=== PATIENT | female | born 1990 | race Caucasian/White ===

== ENCOUNTER → 2018-10-09 11:14 | Outpatient (CLI) | payer MEDICAID ==
[~2018-10-09] VITALS: Ht 160 cm; Wt 81.8 kg
[~2018-10-09 11:14] MED LIST: DEMEROL50 MG PO; IBUPROFEN600 MG PO; PERCOCET 5/3251 TA1 PO; PRENATAL-DHA P1 EACH; TRINATAL GT TA1 EACH
[2018-10-09 11:20] VITALS: BP 114/63; Ht 160 cm; Wt 81.8 kg
== END | disposition home or self-care (01) ==
LOC: D.LDO 11:14 → D.ER 11:14 → EDSTATUS 14:54 → D.LDO 14:54
PROVIDERS: ATTEND Obstetrics & Gynecology
DX: O26.899 Other specified pregnancy related conditions, unspecified trimester (principal); Z3A.00 Weeks of gestation of pregnancy not specified

== ENCOUNTER 2018-12-06 04:58 | Inpatient (IN) | payer OTHER ==
[~2018-12-06] VITALS: Ht 160 cm; Wt 89.8 kg
[2018-12-06] MEDS ORDERED: PROTONIX40 MG PO (05:13)
[2018-12-06 05:15] VITALS: BP 124/62; Ht 160 cm; Wt 89.8 kg
[2018-12-06 05:47] LABS: HEMATOCRIT 30.9 % (36.0-48.0); HEMOGLOBIN 10.2 g/dL (12-16); MCH 26.3 pg (26.0-34.0); MCV 79.6 fL (80.0-100.0); MEAN PLATELET VOLUME 10.4 fL (7.4-10.4); RBC 3.88 10x6/uL (4.00-5.40); RDW 14.9 % (11.5-14.5); WBC 8.5 10x3/uL (4.8-10.8)
[2018-12-06 08:14] LABS: APPEARANCE HAZY (CLEAR); BILIRUBIN NEGATIVE (NEGATIVE); COLOR YELLOW (YELLOW); GLUCOSE NEGATIVE (NEGATIVE); KETONE NEGATIVE (NEGATIVE); NITRITE NEGATIVE (NEGATIVE); PROTEIN NEGATIVE (NEGATIVE); SPECIFIC GRAVITY 1.015 (1.005-1.020)
[2018-12-06 08:16] LABS: BACTERIA MANY /hpf (NONE SEEN); EPITHELIAL CELLS 0-5 /hpf (0-5); MUCUS <1+ /lpf (NONE SEEN)
--- NOTE | 2018-12-06 21:28 | NUR ---
AMBULATORY TO ROOM 1274 FOR CONTINUED PP CARE. STEADY GAIT NOTED. VSS. FUNDUS FIRM, MIDLINE AND U2 WITH SCANT RUBRA LOCHIA NO CLOTS NOTED. ORIENTED TO ROOM AND CALL LIGHT USE, VERBALIZES UNDERSTANDING. SHIFT ASSESSMENT PER FLOWSHEET DONE. EDUCATED ON IMPORTANCE OF EMPTYING BLADDER AT LEAST Q 2-3 HOURS, VERBALIZES UNDERSTANDING. ICE WATER PROVIDED. LINENS PROVIDED TO PT'S MOTHER. DENIES ADDITIONAL NEEDS. BED IN LOW POSITION WITH UPPER SIDE RAILS RAISED X2. CALL LIGHT AND PHONE WITHIN REACH. WILL CONTINUE TO MONITOR. INFANT IN OPEN CRIB AT BEDSIDE.
[2018-12-06 21:30] VITALS: BP 110/66
--- NOTE | 2018-12-06 22:25 | NUR ---
PAIN REASSESSMENT COMPLETED. -08/11. DENIES NEED FOR INTERVENTION. BED IN LOW POSITION WITH UPPER SIDE RAILS RAISED X2. CALL LIGHT AND PHONE WITHIN REACH. WILL CONTINUE TO MONITOR AND ASSIST PRN.
--- NOTE | 2018-12-06 23:57 | NUR ---
PT RESTING QUIETLY WITH EYES CLOSED IN SEMI-FOWLERS POSITION. RESPIRATIONS REGULAR AND UNLABORED WITH NO S/S OF DISTRESS NOTED. RESTING QUIETLY IN OPEN CRIB AT BEDSIDE. BED IN LOW POSITION WITH UPPER SIDE RAILS RAISED X2. CALL LIGHT AND PHONE WITHIN REACH. WILL CONTINUE TO MONITOR AND ASSIST PRN.
--- NOTE | 2018-12-07 01:57 | NUR ---
C/O ABD CRAMPING 12/11. PERCOCET AND MOTRIN GIVEN PER PT REQUEST AND ORDER. UP TO VOID AT THIS TIME TIME. PERICARE DONE PER PT USING BETADINE RINSE IN PERIBOTTLE, TUX, AND DERMAPLAST. PERIPAD CHANGED WITH SMALL AMT RUBRA LOCHIA, NO CLOTS NOTED. BACK TO BED. ICE PACK AND ICE WATER PROVIDED. DENIES ADDITIONAL NEEDS. BED IN LOW POSITION WITH UPPER SIDE RAILS RAISED X2. CALL LIGHT AND PHONE WITHIN REACH. WILL CONTINE TO MONITOR AND ASSIST PRN.
--- NOTE | 2018-12-07 02:40 | NUR ---
SITTING IN SEMI-FOWLERS POSITION HOLDING . DENIES PAIN. TAKEN TO NBN PER PT REQUEST FOR HEARING SCREEN, BATH, V/S AND WEIGHT CHECK. DENIES NEEDS. BED IN LOW POSITION WITH UPPER SIDE RIALS RAISED X2. CALL LIGHT AND PHONE WITHIN REACH. WILL CONTINUE TO MONITOR.
--- NOTE | 2018-12-07 04:35 | NUR ---
RESTING WITH EYES CLOSED LAYING ON RIGHT SIDE. RESPIRATIONS REGULAR AND UNLABORED, NO S/S OF DISTRESS NOTED. INFANT RESTING QUIETLY IN OPEN CRIB AT BEDSIDE. RESPIRATIONS REGULAR AND UNLABORED, NO S/S OF DISTRESS NOTED. BED IN LOW POSITION WITH UPPER SIDE RAILS RAISED X2. CALL LIGHT AND PHONE WITHIN REACH. WILL CONTINUE TO MONITOR AND ASSIST PRN.
[2018-12-07 06:08] LABS: RAPID PLASMA REAGIN Non Reactive (Non Reactive)
--- NOTE | 2018-12-07 06:18 | NUR ---
C/O BACK ACHE, 09/11. PERCOCET GIVEN PER PT REQUEST AND ORDER. ICE WATER PROVIDED. INFANT SWADDLED AND PLACED IN OPEN CRIB PER PT REQUEST. DENIES ADDITIONAL NEEDS. BED IN LOW POSITION WITH UPPER SIDE RAILS RAISED X2. CALL LIGHT AND PHONE WITHIN REACH. WILL CONTINUE TO MONITOR AND ASSIST PRN.
[2018-12-07 07:00] LABS: BASOPHILS 0.2 % (0-2); EOSINOPHILS 0.9 % (0-7); HEMATOCRIT 30.1 % (36.0-48.0); HEMOGLOBIN 9.7 g/dL (12-16); IMMATURE GRANULOCYTES 0.9 % (0-5); LYMPHOCYTES 10.8 % (15-50); MCHC 32.2 g/dL (31.0-37.0); MCV 80.7 fL (80.0-100.0); MEAN PLATELET VOLUME 10.4 fL (7.4-10.4); MONOCYTES 8.4 % (2-11); NEUTROPHILS 78.8 % (40-80); PLATELET COUNT 148 10x3/uL (130-400); RBC 3.73 10x6/uL (4.00-5.40); RDW 14.9 % (11.5-14.5); WBC 9.9 10x3/uL (4.8-10.8)
--- NOTE | 2018-12-07 07:08 | NUR ---
BEDSIDE REPORT GIVEN TO Sandi ALBA RN. PT HOLDING IN ARMS IN SEMI-FOWLERS POSITION. DENIES BACK PAIN. C/O INTERMITTENT ABD CRAMPING 4-10/11. PAIN MEDICATIONS REVIEWED WITH PT, REQUESTS MOTRIN WHEN NEXT AVAILABLE.
--- NOTE | 2018-12-07 07:31 | NUR ---
C/O ABDOMINAL PAIN, PRN MED GIVEN WITH SIP WATER. NO OTHER NEEDS VOICED AT THIS TIME, IN ARMS. CALL LIGHT IN EASY REACH, WILL MONITOR.
[2018-12-07 07:32] VITALS: BP 105/63
--- NOTE | 2018-12-07 08:10 | NUR ---
ASSESSMENT COMPLETED, RESP EVEN AND UNLABORED, HEART RRR, LUNGS CTAB, ABD SOFT AND APPROPRIATELY MILDLY TENDER WITH FUNDUS FIRM AT U/2 AND MIDLINE, LOCHIA RUBRA LIGHT AMOUNT, FRESH ICE PACK TO PERINEUM, STATES WOULD LIKE SALINE LOCK OUT IT IS BOTHERSOME TO HER. FUENTES FREELY, VOIDING WITHOUT DIFFICULTY, PT MOTHER AT BS. BREAKFAST TRAY ON [facility], CUP OF ICE PROVIDED PER REQUEST. CALL LIGHT IN EASY REACH, WILL MONITOR AND DC SALINE LOCK ON CHECK OF H&H RESULTS THIS AM PER PT REQUEST.
--- NOTE | 2018-12-07 08:20 | NUR ---
PAIN REASSESSMENT COMPLETED, DENIES PAIN OR OTHER CONCERNS AT THIS TIME, WILL MONITOR.
--- NOTE | 2018-12-07 09:05 | NUR ---
PT OOB TO SHOWER, LINENS PROVIDED. NO OTHER NEEDS VOICED AT THIS TIME.
--- NOTE | 2018-12-07 10:25 | NUR ---
PT REQUEST PAIN MED FOR PAIN RATED A 5/10 ON NUMERIC PAIN SCALE, PERCOCET GIVEN WITH SIPS OF SODA. DENIES OTHER NEEDS, MULTIPLE FAMILY AND FRIENDS PRESENT IN ROOM. CALL LIGHT IN EASY REACH, WILL MONITOR.
--- NOTE | 2018-12-07 11:12 | NUR ---
OOB TO BR, PT REPORTS "STILL CRAMPING BUT PAIN IS A LITTLE BETTER NOW" ON PAIN REASSESSMENT. NO OTHER NEEDS VOICED AT THIS TIME, FAMILY REMAINS AT BS WITH PT.
--- NOTE | 2018-12-07 12:05 | NUR ---
APPLE JUICE PROVIDED UPON REQUEST. NO OTHER NEEDS VOICED AT THIS TIME. CONTINUE TO MONITOR.
--- NOTE | 2018-12-07 13:25 | NUR ---
PT C/O ABD CRAMPING PAIN, REQUESTS MED ON ROUNDS. IBUPROFEN GIVEN WITH SIPS WATER, MULTIPLE FAMILY IN ROOM, DENIES OTHER NEEDS. CONTINUE TO MONITOR. CALL LIGHT IN EASY REACH, BED IN LOW POSITION, SIDE RAILS UP X2, BED BRAKES LOCKED.
--- NOTE | 2018-12-07 14:44 | NUR ---
ROUNDS COMPLETED, PT LYING RECUMBENT IN BED, LEFT TILT POSITION WITH AT BREAST, NAD NOTED, DENIES NEEDS OR CONCERNS, LIGHTS DIMMED, CALL LIGHT IN EASY REACH, HOB ELEVATED 45 DEGREES, CONTINUE TO MONITOR.
[2018-12-07 15:40] VITALS: BP 104/56
--- NOTE | 2018-12-07 15:40 | NUR ---
ROUNDS COMPLETED, VSS, AFEBRILE, RESP EVEN AND UNLABORED. PT STATES "I'M JUST WAITING TO GO HOME." REVIEWED DISCHARGE INSTRUCTIONS WITH PT, DISCUSSED PLAN OF CARE UNTIL ABLE TO DC HOME AROUND 5PM AND AFTER INFANT LAB WORK COMPLETED AND VERBAL ORDER OBTAINED FOR DC TO HOME WITH HER. STATES UNDERSTANDING OF ALL INFORMATION PROVIDED, FUNDUS FIRM AT U/3 AND MIDLINE, LOCHIA RUBRA LIGHT AMOUNT, NO CLOTS, VOIDING WITHOUT DIFFICULTY, +FLATUS. FUENTES FREELY. CALL LIGHT IN EASY REACH, BED IN LOW POSITION. SPOUSE AND PT SISTER IN ROOM WITH PT. CONTINUE TO MONITOR.
--- NOTE | 2018-12-07 16:30 | NUR ---
rounds completed, nad noted, resp even and unlabored. call light in easy reach. continue to monitor.
--- NOTE | 2018-12-07 17:20 | NUR ---
ROUNDS COMPLETED, NO NEEDS VOICED. STATES WAITING ON DISCHARGE TO GO HOME. NO C/O PAIN AT PRESENT. CONTINUE TO MONITOR.
--- NOTE | 2018-12-07 18:15 | NUR ---
DISCHARGED PT TO HOME VIA WC WITH ALL PERSONAL BELONGINGS, SECURED IN PRIVATE AUTO CARSEAT PER INFANT FATHER. NAD NOTED.
== END 2018-12-07 18:15 | disposition home or self-care (01) | DRG 806 ==
LOC: D.LD 04:58
PROVIDERS: ADMIT Obstetrics & Gynecology; ATTEND Obstetrics & Gynecology
PROC: 10E0XZZ Delivery of Products of Conception, External Approach (ICD-10-PCS; principal; 2018-12-06)
PROC: 0HQ9XZZ Repair Perineum Skin, External Approach (ICD-10-PCS; 2018-12-06)
PROC: 10907ZC Drainage of Amniotic Fluid, Therapeutic from Products of Conception, Via Natural or Artificial Opening (ICD-10-PCS; 2018-12-06)
DX: O41.03X0 Oligohydramnios, third trimester, not applicable or unspecified (principal); O63.9 Long labor, unspecified; Z37.0 Single live birth; Z3A.38 38 weeks gestation of pregnancy; O71.82 Other specified trauma to perineum and vulva; O70.0 First degree perineal laceration during delivery; O36.5930 Maternal care for other known or suspected poor fetal growth, third trimester, not applicable or unspecified

== ENCOUNTER 2019-01-31 06:03 | Day surgery (SDC) | payer OTHER ==
[2019-01-29 14:24] LABS: BASOPHILS 0.6 % (0-2); EOSINOPHILS 2.3 % (0-7); HEMATOCRIT 39.6 % (36.0-48.0); HEMOGLOBIN 13.4 g/dL (12-16); IMMATURE GRANULOCYTES 0.5 % (0-5); MCH 27.3 pg (26.0-34.0); MCHC 33.8 g/dL (31.0-37.0); MCV 80.7 fL (80.0-100.0); MEAN PLATELET VOLUME 10.6 fL (7.4-10.4); MONOCYTES 7.4 % (2-11); NEUTROPHILS 60.2 % (40-80); RBC 4.91 10x6/uL (4.00-5.40); RDW 15.5 % (11.5-14.5); WBC 6.5 10x3/uL (4.8-10.8)
[2019-01-29 14:51] LABS: PLATELET COUNT 219 10x3/uL (130-400)
[~2019-01-31] VITALS: Ht 160 cm; Wt 76.2 kg
[~2019-01-31 06:03] MED LIST changes: +PROTONIX40 MG PO
[2019-01-31 06:50] VITALS: BP 109/76; Ht 160 cm; Wt 76.2 kg
[2019-01-31 07:01] LABS: HCG URINE NEGATIVE (NEGATIVE)
--- NOTE | 2019-01-31 10:41 | NUR ---
0920-REC'D REPORT FROM ERICKSON GARCIA. IV PATENT,AWAKE AND ALERT WITHOUT COMPLAINTS AT THIS TIME
--- NOTE | 2019-01-31 11:52 | NUR ---
1115-DISCHARGE CRITERIA MET. REVIEWED DISCHARGE INSTRUCTRIONS WITH PT AND SPOUSE,VERBALIZED UNDERSTANDING WITHOUT QUESTIONS OR CONCERNS.VSS. ESCORTED OUT VIA W/C WITH DISCHARGE PAPERWORK IN HAND
--- NOTE | 2019-02-17 13:26 | OP ---
PATIENT NAME: DIMAS ROJO MEDICAL RECORD: [id number] :89 LOCATION:[facility] ADMISSION DATE: SURGEON: TEE YBARRA MD DATE OF OPERATION: 01/31/2019 PREOPERATIVE DIAGNOSIS: Multiparity, the patient desires permanent sterility. POSTOPERATIVE DIAGNOSIS: Multiparity, the patient desires permanent sterility. PROCEDURE: Laparoscopic tubal ligation via bipolar cautery. SURGEON: Tee Ybarra MD ANESTHESIA: General endotracheal. INTRAVENOUS FLUIDS: Per anesthesia record. SPECIMENS: None. FINDINGS: 1. Grossly normal-appearing uterus. 2. Grossly normal-appearing fallopian tubes and ovaries bilaterally. COMPLICATIONS: None apparent. DESCRIPTION OF PROCEDURE: The patient was taken to the operating room where general anesthesia was achieved without any difficulty. The patient was then prepped and draped in normal sterile fashion in the dorsal lithotomy position in [facility]. At this point, the patient was prepped and the bladder was drained of approximately 100 cc of clear yellow urine and a sponge stick was placed into the vagina for uterine elevation. At this point, a 5-mm skin incision was made in the inferior aspect of the umbilicus. The 5-mm bladeless trocar was then used to enter the intraperitoneal space under direct visualization of the laparoscope. The introducer was removed. The intraperitoneal placement was confirmed visually and opening pressure was found to be less than 10 mmHg. The patient was then insufflated without any difficulty and a second 5-mm port was placed approximately 5 cm above the pubic symphysis in the midline. A skin incision was made and then another 5-mm bladeless trocar was then used for that site. A Kleppinger bipolar cautery instrument was then used to completely desiccate approximately 4 cm of the mid portion of each fallopian tube. Good hemostasis was noted during desufflation. The patient was then completely desufflated, and the skin was repaired in an interrupted fashion with 3-0 Vicryl. The sponge stick was removed from the vagina. The patient tolerated the procedure well, transferred to postanesthesia recovery stable without incident. TRANSINT:[id number] Voice Confirmation ID: [id number] DOCUMENT ID: [id number] OPERATIVE REPORT [id number] DIMAS ROJO TEE YBARRA MD at [id number] CC: [id number] DICTATION DATE: 02/14/19 1034 DEBEAKER: 02/14/19 1120 [facility] 01/31/19 [place] [id number] [place] [id number]
== END 2019-01-31 11:15 | disposition home or self-care (01) ==
LOC: D.OPS 06:03 → D.PAN 09:00 → D.OPS 09:00
PROVIDERS: ATTEND Obstetrics & Gynecology
DX: Z30.2 Encounter for sterilization (principal); Z30.09 Encounter for other general counseling and advice on contraception